=== PATIENT | female | born 1965 | race Caucasian/White ===

== ENCOUNTER 2017-01-22 15:01 | Inpatient (IN) | payer MEDICAID, MEDICARE, OTHER, SELFPAY ==
[~2017-01-22] VITALS: Ht 162.6 cm; Wt 57.0 kg
[2017-01-22] MEDS ORDERED: DIAZEPAM 5 MG/ML, 2ML IVPush ONE (15:30)
[2017-01-22] MEDS ORDERED: SODIUM CHLORIDE 0.9% 1,000ML IVBOLUS ONE (15:30)
[2017-01-22] MEDS ORDERED: AMPICILLIN/SULBACTAM 3 GM in SODIUM CHLORIDE 0.9% 100 ML IVPB ONE (15:30)
[2017-01-22] MEDS ORDERED: SODIUM CHLORIDE FLUSH 10ML SYR IVF ONE (15:30)
[2017-01-22 15:40] LABS: HEMATOCRIT 37.5 % (34.6-47.8); WHITE BLOOD COUNT 6.2 x10^3/uL (3.4-10)
[2017-01-22] MEDS ORDERED: DIAZEPAM 5 MG TABLET ONE (15:43)
[2017-01-22 15:53] LABS: BLOOD UREA NITROGEN 8 mg/dL (7-18)
[2017-01-22] MEDS ORDERED: VANCOMYCIN PER PHARMACY MC ONE (16:00)
[2017-01-22] MEDS ORDERED: VANCOMYCIN PMX 1GM/200ML 200 ML IV ONE (16:00)
[2017-01-22] MEDS ORDERED: DIAZEPAM 5 MG TABLET PO ONE (16:30)
[2017-01-22] MEDS ORDERED: VANCOMYCIN 1,000 MG ONE (16:59)
[2017-01-22] MEDS ORDERED: VANCOMYCIN PER PHARMACY MC PRN (17:00)
[2017-01-22] MEDS ORDERED: GADOBUTROL 7.5 MMOL/7.5 ML PFS ONE (18:19)
[2017-01-22] MEDS ORDERED: PHARMACOKINETIC MONITORING MC PRN (19:30)
[2017-01-22] MEDS ORDERED: PHARMACOKINETIC CONSULTATION MC ONE (19:30)
[2017-01-22 20:41] VITALS: BP 106/67
[2017-01-22] MEDS: LACTOBACILLUS CHEW TABLET PO SCH ×2 (21:00→22:58)
[2017-01-22] MEDS: PIPERACILLIN/TAZO/PMX 3.375GM 50 ML IV SCH ×2 (22:58→23:00)
[2017-01-22] MEDS: ENOXAPARIN 40 MG/0.4 ML SQ SCH (22:58)
[2017-01-23 02:08] VITALS: BP 108/68
[2017-01-23 02:10] VITALS: BP 108/68
[2017-01-23] MEDS: PIPERACILLIN/TAZO/PMX 3.375GM 50 ML IV SCH ×4 (04:25→23:26)
[2017-01-23] MEDS: HYDROcodone/APAP 5/325 TABLET PO PRN ×3 (04:27→23:26)
[2017-01-23 04:35] VITALS: BP 106/67
[2017-01-23] MEDS: LACTOBACILLUS CHEW TABLET PO SCH ×4 (05:31→23:26)
[2017-01-23] MEDS: VANCOMYCIN PMX 1GM/200ML 200 ML IV SCH ×2 (05:32→17:56)
[2017-01-23 06:13] LABS: HEMATOCRIT 34.3 % (34.6-47.8); HEMOGLOBIN 11.1 g/dL (11.7-16.4); WHITE BLOOD COUNT 3.6 x10^3/uL (3.4-10)
[2017-01-23 06:21] LABS: BLOOD UREA NITROGEN 9 mg/dL (7-18)
[2017-01-23 08:30] VITALS: BP 101/62
[2017-01-23 14:26] VITALS: BP 102/57
[2017-01-23 21:50] VITALS: BP 102/62
[2017-01-23] MEDS: ENOXAPARIN 40 MG/0.4 ML SQ SCH (23:00)
[2017-01-24 02:35] VITALS: BP 95/58
[2017-01-24] MEDS: LACTOBACILLUS CHEW TABLET PO SCH ×4 (05:01→20:31)
[2017-01-24] MEDS: PIPERACILLIN/TAZO/PMX 3.375GM 50 ML IV SCH ×3 (05:01→19:39)
[2017-01-24] MEDS: VANCOMYCIN PMX 1GM/200ML 200 ML IV SCH ×2 (06:02→20:31)
[2017-01-24 07:01] VITALS: BP 101/60
[2017-01-24] MEDS: HYDROcodone/APAP 5/325 TABLET PO PRN (11:33)
[2017-01-24 15:36] VITALS: BP 119/86
[2017-01-24] MEDS ORDERED: PHARMACOKINETIC CONSULTATION MC ONE (18:00)
[2017-01-24 19:05] VITALS: BP 115/75
[2017-01-24] MEDS ORDERED: DIAZEPAM 5 MG TABLET PO ONE (23:00)
[2017-01-24] MEDS: ENOXAPARIN 40 MG/0.4 ML SQ SCH (23:00)
[2017-01-25 01:36] VITALS: BP 130/78
[2017-01-25] MEDS: PIPERACILLIN/TAZO/PMX 3.375GM 50 ML IV SCH ×2 (02:16→06:55)
[2017-01-25] MEDS: LACTOBACILLUS CHEW TABLET PO SCH (06:36)
[2017-01-25 07:15] VITALS: BP 121/76
[2017-01-25] MEDS: VANCOMYCIN PMX 1GM/200ML 200 ML IV SCH (08:07)
== END 2017-01-25 11:54 | disposition left against medical advice (07) | DRG 603 ==
LOC: ED 16:23 → EDIP 16:24 → ED 16:36 → 3NE 18:40
PROVIDERS: ADMIT Internal Medicine; ATTEND Internal Medicine
DX: L03.115 Cellulitis of right lower limb (principal); G35 Multiple sclerosis; M79.7 Fibromyalgia; F17.210 Nicotine dependence, cigarettes, uncomplicated; M19.90 Unspecified osteoarthritis, unspecified site; R73.9 Hyperglycemia, unspecified; Z80.9 Family history of malignant neoplasm, unspecified; Z88.1 Allergy status to other antibiotic agents; S91.301A Unspecified open wound, right foot, initial encounter; X58.XXXA Exposure to other specified factors, initial encounter; Y93.89 Activity, other specified; Y92.89 Other specified places as the place of occurrence of the external cause; Y99.8 Other external cause status
CPT/HCPCS: 36415; 80048; 80202; 82040; 83605; 85025; 87040; 96365; A9585; J0295; J1650; J2543; J3370; J7030

== ENCOUNTER 2019-05-04 21:12 | Emergency (ER) | payer MEDICARE ==
[~2019-05-04] VITALS: Ht 162.6 cm; Wt 56.6 kg
--- NOTE | 2019-05-04 21:38 | NUR ---
PT REPORTS PELVIC /VAGINAL OPENING PAIN X ~2 MONTHS. RECENT DX & TX OF TRIC. [id number] Addendum: 05/04/19 at 2139 by TSHUTES PT REPORTS PELVIC /VAGINAL OPENING PAIN X ~2 MONTHS. RECENT DX & TX OF TRIC. AMBULATORY TO RESTROOM FOR U/A.
--- NOTE | 2019-05-04 21:45 | NUR ---
PT REPORTS PELVIC PAIN 5/10 C SPOTTING X 6 MONTHS BUT DOES NOT HAVE AN OB. TAKING ALEVE FOR PAIN. LAST DOSE AT 1700, MILD RELIEF. PT REPORTS THICK VAGINAL DISCHARGE ALSO.
--- NOTE | 2019-05-04 22:36 | NUR ---
PELVIC COMPLETED. SWABS OBTAINED & SENT. PT DENIES ANY NEEDS. AWARE OF PENDING RESULTS.
[2019-05-04] MEDS ORDERED: CEFTRIAXONE 250 MG ONE (22:47)
[2019-05-04] MEDS ORDERED: AZITHROMYCIN 250 MG TABLET ONE (22:47)
[2019-05-04 22:55] LABS: WET PREP WBCS MODERATE (FEW)
[2019-05-04 22:58] LABS: CLUE CELLS PRESENT (NONE SEEN)
[2019-05-04] MEDS ORDERED: AZITHROMYCIN 500 MG TABLET PO ONE (23:00)
[2019-05-04] MEDS ORDERED: CEFTRIAXONE 250 MG IM ONE (23:00)
[2019-05-04 23:22] VITALS: BP 123/65
== END 2019-05-04 23:23 | disposition home or self-care (01) ==
LOC: ED 21:55
DX: A59.01 Trichomonal vulvovaginitis (principal); F17.200 Nicotine dependence, unspecified, uncomplicated
CPT/HCPCS: 87210; 87808; 96372; 99283; J0696; 87491; 87591

== ENCOUNTER 2021-03-12 01:43 | Emergency (ER) | payer MEDICARE ==
[~2021-03-12] VITALS: Ht 162.6 cm; Wt 50.9 kg
--- NOTE | 2021-03-12 03:51 | NUR ---
pt to room from lobby
[2021-03-12 04:21] LABS: BASOPHILS % (AUTO) 1 % (0-1); EOSINOPHILS % (AUTO) 1 % (1-7); LYMPHOCYTES % (AUTO) 27 % (22-44); MEAN CORPUSCULAR HEMOGLOBIN 29.8 pg (27.0-34.8); MEAN CORPUSCULAR HGB CONC 34.5 g/dL (32.4-35.8); MEAN PLATELET VOLUME 8.1 fL (7.4-10.4); MONOCYTES % (AUTO) 6 % (2-9); NEUTROPHILS % (AUTO) 65 % (42-75); PLATELET COUNT 242 x10^3/uL (130-400); RED BLOOD COUNT 4.67 x10^6/uL (3.82-5.3); RED CELL DISTRIBUTION WIDTH 13.2 % (9.6-15.2)
[2021-03-12 04:32] LABS: ALANINE AMINOTRANSFERASE 21 U/L (12-78); ALBUMIN 3.9 g/dL (3.4-5.0); ANION GAP 5 mmol/L (5-15); CALCIUM 9.5 mg/dL (8.5-10.1); CHLORIDE 107 mmol/L (98-107); CREATININE 0.75 mg/dL (0.55-1.02)
[2021-03-12 04:34] LABS: ALKALINE PHOSPHATASE 90 U/L (45-117); BILIRUBIN,TOTAL 0.4 mg/dL (0.2-1.0); TOTAL PROTEIN 7.6 g/dL (6.4-8.2)
--- NOTE | 2021-03-12 06:51 | NUR ---
REPORT GIVEN TO REMEDIOS DOW.
--- NOTE | 2021-03-12 07:08 | NUR ---
patient report from jelani, patient in bed.patient calm, vss.
[2021-03-12 07:50] LABS: TROPONIN I < 0.015 ng/mL (0.000-0.045)
[2021-03-12 07:53] VITALS: BP 128/78
--- NOTE | 2021-03-12 07:54 | NUR ---
discharge reviewed, shows understanding.
== END 2021-03-12 08:01 | disposition home or self-care (01) ==
LOC: ED 07:55
DX: R06.00 Dyspnea, unspecified (principal); J20.9 Acute bronchitis, unspecified; Z20.822 Contact with and (suspected) exposure to COVID-19
CPT/HCPCS: 36415; 71045; 80053; 84484; 85025; 93005; 99285; U0003; U0005